=== PATIENT | male | born 1965 | race Caucasian/White ===

== ENCOUNTER → 2019-06-27 | Day surgery (SDC) | payer OTHER ==
[~2019-06-27] MED LIST: ACETAMINOPHEN 1000 MG/100 ML IV ONE; ADDERALL 10 MG10 MG PO; AMLODIPINE BESY10 MG PO; BUPIVACAINE HCL 0.5% INJ 30 ML VIAL INJ ONE; CEFAZOLIN SOD 1 GM/NS 50ML 100 ML IV ONE; DEXAMETHASONE SOD PHOS INJ 4 MG/ML VIAL ONE; FENTANYL CITRATE/PF 100MCG/2 ML INJ ONE; FLOMAX0.4 MG PO; GABAPENTIN400 MG PO; LIDOCAINE 2%/ EPINEPHRINE 20ML MDV ONE; LIDOCAINE HCL 2% LOCAL INJ 5 ML SDV VIAL INJ ONE; MIDAZOLAM HCL 2 MG/2 ML VIAL ONE; MOBIC15 MG PO; ONDANSETRON HCL INJ 2MG/ML 2ML 2 MG/ML VIAL ONE; PERCOCET 10-321 EACH PO; PROPOFOL IV EMULSION 10 MG/ML 20 ML VIAL ONE; SEVOFLURANE INHAL SOLN 250 ML PEN BTL ONE; TIZANIDINE HCL2 MG PO; [UNRECOGNIZED DRUG - OTHER] PO
--- OUTSIDE RECORDS SUMMARY | 2019-06-27 05:25 | XMS REPORT | Clinical Summary ---
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 Name Role Phone Mario Roberts MPAS PCP Allergies Not on File Medications Not on file Active Problems Not on file Encounters Care Team Description Date Type Specialty Allen Major MD Nguyen, Lan Kelly, MD Lumbosacral neuritis 02/28/2019 Hospital Radiology Encounter Allen Major MD Nguyen, Lan Kelly, MD Osteoarthritis of knee, unspecified (CODE) 02/28/2019 Hospital Radiology Encounter Allen Major MD Lumbosacral neuritis (Primary Dx); Osteoarthritis of knee, unspecified (CODE) 02/22/2019 Transcribe Access Orders after 06/26/2018 Social History Date Tobacco Use Types Packs/Day Years Used Never Assessed Sex Assigned at Date Recorded Not on file Industry Job Start Date Occupation Not on file Not on file Not on file Travel End Travel History Travel Start No recent travel history available. Last Filed Vital Signs Not on file Plan of Treatment Health Maintenance Due Date Last Done Comments COLONOSCOPY SCREENING 2017 SHINGLES VACCINES (#1) 2017 INFLUENZA VACCINE 06/21/2019 Procedures Comments Procedure Name Priority Date/Time Associated Diagnosis CT LUMBAR SPINE WO Routine 02/28/2019 Lumbosacral neuritis CONTRAST 5:57 PM CDT after 06/26/2018 Results * CT Lumbar Spine Wo Contrast (02/28/2019 5:57 PM CDT) Specimen Narrative Performed At EXAMINATION:CT LUMBAR SPINE WO CONTRAST [facility] CLINICAL HISTORY:M54.17 Radiculopathylumbosacral region, ss COMPARISON:None. TECHNIQUE: Axial helical CT images throughout theLUMBAR spine were performedwithout contrast. Sagittal and coronal reformatted images were generated. CT scans are performed using radiation dose reduction techniques. Technical factors are evaluated and adjusted to ensure appropriate moderation of exposure. Automated dose management technology is applied to adjust radiation exposure while achieving a highly diagnostic quality image. FINDINGS: Sagittal and coronal image reconstructions demonstrate a rudimentary disc between S1 and S2. There is generalized lumbar disc space narrowing most pronounced at T1 to with associated anterior osteophyte formation. Axial images demonstrate the following: Sacroiliac joint: There are mild sacroiliac joint degenerative changes. L5-S1: There is a mild annular bulge with a small focal right foraminal protrusion and not associated with any definite nerve root displacement. L4-5: There is a minimal annular bulge. There is a broad-based left foraminal protrusion impinging on the left L4 nerve root. L3-4: There is no significant disc bulge or stenosis. L2-3: There is a minimal diffuse annular bulge without stenosis. L1-2: There is narrowing of the disc space with anterior osteophyte formation. There is diffuse bulging of the annulus with a broad-based left foraminal/extraforaminal bulge/protrusion impinging on the left L1 nerve root within the foramen. T12-L1: There is a small partially calcified left foraminal disc protrusion without definite nerve root displacement. T11-12: There is minimal annular bulge without stenosis. IMPRESSION: Left foraminal protrusion at L4-5 impinging on the left L4 nerve root. Broad-based left foraminal and extra foraminal bulge/protrusion at L1-2 with adjacent spondylosis with impingement on the left L1 nerve root within the foramen. Very small right foraminal protrusion at L5-S1 without definite nerve root impingement or displacement. Facet joint degenerative changes at L5-S1 and bilateral sacroiliac joint mild degenerative changes. [id number] Procedure Note [facility], Radiology Results Incoming - 02/28/2019 7:26 PM CDT EXAMINATION: CT LUMBAR SPINE WO CONTRAST CLINICAL HISTORY: M54.17 Radiculopathy lumbosacral region, ss COMPARISON: None. TECHNIQUE: Axial helical CT images throughout the LUMBAR spine were performed without contrast. Sagittal and coronal reformatted images were generated. CT scans are performed using radiation dose reduction techniques. Technical factors are evaluated and adjusted to ensure appropriate moderation of exposure. Automated dose management technology is applied to adjust radiation exposure while achieving a highly diagnostic quality image. FINDINGS: Sagittal and coronal image reconstructions demonstrate a rudimentary disc between S1 and S2. There is generalized lumbar disc space narrowing most pronounced at T1 to with associated anterior osteophyte formation. Axial images demonstrate the following: Sacroiliac joint: There are mild sacroiliac joint degenerative changes. L5-S1: There is a mild annular bulge with a small focal right foraminal protrusion and not associated with any definite nerve root displacement. L4-5: There is a minimal annular bulge. There is a broad-based left foraminal protrusion impinging on the left L4 nerve root. L3-4: There is no significant disc bulge or stenosis. L2-3: There is a minimal diffuse annular bulge without stenosis. L1-2: There is narrowing of the disc space with anterior osteophyte formation. There is diffuse bulging of the annulus with a broad-based left foraminal/extraforaminal bulge/protrusion impinging on the left L1 nerve root within the foramen. T12-L1: There is a small partially calcified left foraminal disc protrusion without definite nerve root displacement. T11-12: There is minimal annular bulge without stenosis. IMPRESSION: Left foraminal protrusion at L4-5 impinging on the left L4 nerve root. Broad-based left foraminal and extra foraminal bulge/protrusion at L1-2 with adjacent spondylosis with impingement on the left L1 nerve root within the foramen. Very small right foraminal protrusion at L5-S1 without definite nerve root impingement or displacement. Facet joint degenerative changes at L5-S1 and bilateral sacroiliac joint mild degenerative changes. [id number] Performing Organization Address City/State/Zipcode Phone Number [facility] [address] [place] [address] after 06/26/2018 Insurance Type Payer Benefit Subscriber ID Effective Phone Address Plan / Dates Group HMO/PPO [facility] xxxxxxxxx [id number] THCARE resent CHOICE/CHO ICE + Advance Directives Patient has advance care planning documents on file. For more information, rebekah edwards contact: Jose Raul Martinez [phone] [place] [address]
--- OUTSIDE RECORDS SUMMARY | 2019-06-27 05:25 | XMS REPORT ---
Author Author [facility] Address Unknown Phone Unavailable Care Team Providers Care Biology Intern Name Role Phone Jono Connor Unavailable Unavailable Problems This patient has no known problems. Allergies, Adverse Reactions, Alerts This patient has no known allergies or adverse reactions. Medications This patient has no known medications. Results Test Description Test Time Test Comments Text Results Atomic Results Result Comments Hand Right 3 View [place] [address] [facility]OLOG[facility] REPORT Name: VERNON EGAN Acct Number: [id number] :1965 Age:52 Sex:M Ord Phys: Jono Connor MD Unit Number: [id number] [place] [facility] [address]: Aaron Mcginnis MD Status: REG ER ER Exam Date: 04/06/18 EXAM DESCRIPTION: RAD - Hand Right 3 View - 04/06/2018 7:53 pm CLINICAL HISTORY: Fish hook injury COMPARISON: None. FINDINGS: No fracture is identified. There is no dislocation or periosteal reaction noted. Treble hook is present in the soft tissues distal third digit. No bone involvement. Signed By: Luther Castro MD Signed AT: 04/06/182008
[2019-06-27 09:25] VITALS: BP 142/91
--- NOTE | 2019-06-27 21:00 | NUR ---
OPERATIVE NOTE - ORTHOPEDICS DATE OF SURGERY: 06/27/19 PREOPERATIVE DIAGNOSES: Right Knee Chondromalacia, Lateral Meniscus Tear POSTOPERATIVE DIAGNOSES: Right Knee Medial Femoral Condyle Chondral Defect, Lateral Plateau Chondromalacia, Lateral Meniscus Partial Root Tear, Impinging Medial Plica PROCEDURE: Right Knee Arthroscopic Medial Femoral Condyle Microfracture, Lateral Plateau Chondroplasty, Partial Lateral Root Meniscectomy, Excision of Medial Impinging Plica SURGEON: Danita Harp DO ANESTHESIA: General COMPLICATIONS: None TOURNIQUET: Applied but not inflated. No tourniquet EBL: Minimal INDICATIONS: Due to persistent pain and limitations on activity combined with findings on exam and imaging, the patient requests surgical treatment. Nonopera tive care and alternative surgical options were reviewed. We agreed that this provided the best risk/benefit profile for this patient, understanding and accepting risks of recurrent/persistent symptoms, infection, bleeding, stiffness, neurological/vascular damage, failure to improve and anesthetic complication (as reviewed by anesthesia service). Also, the patient understands that arthroscopic treatment of articular cartilage lesions provides temporary incomplete relief but that meniscal symptoms should be well addressed. FINDINGS: Right Knee Patella Grade 2 Chondromalacia Trochlea - Grade 2 Chondromalacia Lateral Gutter Normal Medial Gutter Normal Medial Compartment Femoral - Grade 4 Chondral defect ~ 15 mm x 15 mm Tibial - Grade 1 Medial Meniscus - Normal Cruciate region - Normal Lateral Compartment Femoral - Grade 1 Chondromalacia Tibial - Grade 3 Chondromalacia Lateral Meniscus - partial posterior root meniscal tear Synovium - Impinging Medial Plica PROCEDURE: With the patient in the supine position with all prominences well padded, general anesthesia was obtained. Sterile prepping and draping were performed. Antibiotics had been given and a time out performed. After an injection of 1% Lidocaine with Epinephrine in the proposed incision sites, The arthroscope was i nserted via a small lateral parapatellar tendon incision into the patellofemoral space. Under direct visualization, a medial parapatellar tendon portal was created providing a working portal. Diagnostic arthroscopy was performed and the above findings were noted. Within the medial compartment, the medial meniscus was extensively probed with a establish a well-balanced rim. A stable border was verified. There was grade 4 chondromalacia of the medial femoral condyle which was debrided to stable borders that was 15 mm x 15 mm. Through the use of a chondra l pick, several microfractures were created throughout the lesion. With the pump off, marrow tissue could be seen extravasating out of the microfractures. Within the intercondylar space, the ACL was visualized and intact The lateral compartment demonstrated a friable and frayed lateral meniscus root with grade 3 chondromalacia of the lateral tibial plateau.. This was debrided with an arthroscopic shaver to a stable border with 90% of the meniscus remainin g and a stable chondral border. Chondroplasty was performed on the trochlea and patella to provide a stable border. Within the patellofemoral space, the impinging medial Plica was excised through the use of an arthroscopic shaver. Adequate hemostasis was obtained. The joint was extravasated and .25% marcaine was injected into the knee. The incisions were closed and more local was injected around the portal sites. Steristrips, Xeroform, 4x4s, ABDs and a compressive ALISE bandage were applied. The patient was awakened and transferred to the PACU in satisfactory condition having tolerated the procedure well. DO MARIA DEL CARMEN [facility]
== END | disposition home or self-care (01) ==
LOC: OR 05:20
PROVIDERS: ATTEND Orthopaedic Surgery
DX: M22.41 Chondromalacia patellae, right knee (principal); S83.271A Complex tear of lateral meniscus, current injury, right knee, initial encounter; I10 Essential (primary) hypertension; F90.9 Attention-deficit hyperactivity disorder, unspecified type; K21.9 Gastro-esophageal reflux disease without esophagitis; Z01.810 Encounter for preprocedural cardiovascular examination; M67.51 Plica syndrome, right knee
CPT/HCPCS: 29879; 29881; 93005; J0131; J0690; J1100; J2001 ×2; J2250; J2405; J2704; J3010